=== PATIENT | male | born 1955 ===

== ENCOUNTER 2023-06-16 11:30 | Inpatient (IN) | payer OTHER ==
[~2023-06-16] VITALS: Ht 182.9 cm; Wt 87.5 kg
[2023-06-16] MEDS ORDERED: LOSARTAN-HCTZ1 EAC1 (14:45)
[2023-06-16] MEDS ORDERED: TAMS0.4C (14:46)
[2023-06-16] MEDS ORDERED: AMLODIPINE-OLM1 EAC2 (14:46)
[2023-06-16] MEDS ORDERED: SIMVASTATIN5 MG (14:46)
[2023-06-16] MEDS ORDERED: LOPRESSOR25 MG (14:46)
[2023-06-16] MEDS ORDERED: NORVASC5 MG PO (15:04)
[2023-06-20] MEDS ORDERED: TRANEXAMIC ACID 100MG/1ML (1000MG) AMPUL IV ONE ×3 (09:21→11:00)
[2023-06-20] MEDS ORDERED: CEFAZOLIN SODIUM 1,000 MG VIAL ONE (09:21)
[2023-06-20] MEDS ORDERED: KETOROLAC TROMETHAMINE 60 MG VIAL IM ONE ×2 (09:32→11:00)
[2023-06-20] MEDS ORDERED: BUPIVACAINE HCL/PF 0.5% 30ML ML ONE (09:33)
[2023-06-20] MEDS ORDERED: LIDOCAINE HCL/EPINEPHRINE 10MG/ML 1% 50ML IJ ONE (09:33)
[2023-06-20] MEDS ORDERED: BUPIVACAINE HCL 30 ML VIAL IJ ONE (11:00)
[2023-06-20] MEDS ORDERED: LIDOCAINE HCL/EPINE 1%-Epi 30ML VIAL IJ ONE (11:00)
[2023-06-20] MEDS ORDERED: CEFAZOLIN SODIUM 1,000 MG VIAL IV ONE (11:00)
[2023-06-20] MEDS ORDERED: MORPHINE SULFATE 4 MG/ML VIAL IV ONE (11:00)
[2023-06-20] MEDS ORDERED: ONDANSETRON HCL 2 MG/ML VIAL ONE (13:04)
[2023-06-20] MEDS ORDERED: OxyCODONE HCL/APAP UD (PERCOCET) PO PRN (17:30)
[2023-06-20] MEDS ORDERED: MORPHINE SULFATE 4 MG/ML CARTRIDGE IV PRN (17:30)
[2023-06-20] MEDS ORDERED: GABAPENTIN 100 MG CAPSULE PO SCH (21:00)
[2023-06-20] MEDS ORDERED: ORPHENADRINE CITRATE 100 MG TABLET PO SCH (21:00)
[2023-06-20] MEDS ORDERED: CEFAZOLIN SODIUM 1,000 MG VIAL IV SCH (21:00)
[2023-06-21] MEDS ORDERED: ENOXAPARIN SODIUM 30 MG/0.3 ML SYRINGE SUBCUTANEO SCH (09:00)
[2023-06-21 12:51] LABS: HEMATOCRIT 43.7 % (39.0-48.0); HEMOGLOBIN 14.9 g/dL (13-16.00); MEAN CELL VOLUME 88.2 fL (80.0-100.00); MEAN CORPUSCULAR HEMOGLOBIN 30.2 pg (27.00-32.0); MEAN CORPUSCULAR HGB CONC 34.2 g/dl (32.0-36.0); PLATELET COUNT 284 K/uL (150-450); RED BLOOD COUNT 4.95 M/uL (4.00-6.00); RED CELL DISTRIBUTION WIDTH 13.1 % (11.5-14.5)
[2023-06-21] MEDS ORDERED: VITAMIN B COMPLEX 1 EACH PO SCH (14:03)
[2023-06-21] MEDS ORDERED: Cyanocobalamin/Mecobalamin 1 TAB.SL SL SCH (14:03)
[2023-06-21] MEDS ORDERED: IRON FUM,PS/FOLIC ACID/VITC/B3 1 CAP CAPSULE PO SCH (14:03)
[2023-06-22 06:16] LABS: HEMATOCRIT 40.1 % (39.0-48.0); HEMOGLOBIN 13.8 g/dL (13-16.00); MEAN CELL VOLUME 87.6 fL (80.0-100.00); MEAN CORPUSCULAR HEMOGLOBIN 30.1 pg (27.00-32.0); MEAN CORPUSCULAR HGB CONC 34.4 g/dl (32.0-36.0); PLATELET COUNT 264 K/uL (150-450); RED BLOOD COUNT 4.57 M/uL (4.00-6.00); RED CELL DISTRIBUTION WIDTH 13.4 % (11.5-14.5)
[2023-06-22] MEDS ORDERED: METOPROLOL SUCCINATE 25 MG TAB.SR.24H PO SCH (09:00)
[2023-06-22] MEDS ORDERED: AMLODIPINE BESYLATE 5 MG TABLET PO SCH (09:00)
[2023-06-22] MEDS ORDERED: LOSARTAN/HYDROCHLOROTHIAZIDE 1 UDTAB TABLET PO SCH (09:00)
[2023-06-22] MEDS ORDERED: NORFLEX100MG PO (12:44)
[2023-06-22] MEDS ORDERED: OXYC1TAB9 PO (12:45)
[2023-06-22] MEDS ORDERED: XARELTO10 MG PO (12:45)
[2023-06-22] MEDS ORDERED: GABAPENTIN100 MG PO (12:45)
[2023-06-22] MEDS ORDERED: SIMVASTATIN 10 MG TABLET PO SCH (21:00)
[2023-06-22] MEDS ORDERED: TAMSULOSIN HCL 0.4 MG CAP PO SCH (21:00)
== END 2023-06-22 13:58 | DRG 470 ==
LOC: O/R 06-20 06:39 → SURH 06-20 10:00 → SURG 06-20 13:45
PROVIDERS: Internal Medicine Hematology & Oncology; ADMIT Orthopaedic Surgery; ATTEND Orthopaedic Surgery
PROC: 0SRC0JZ Replacement of Right Knee Joint with Synthetic Substitute, Open Approach (ICD-10-PCS; principal; 2023-06-20 10:00)
DX: M17.11 Unilateral primary osteoarthritis, right knee (principal); D62 Acute posthemorrhagic anemia; I10 Essential (primary) hypertension